=== PATIENT | male | born 1995 | race Caucasian/White ===

== ENCOUNTER 2020-03-15 18:40 | Inpatient (IN) ==
[2020-03-15] MEDS ORDERED: NS 0.9% 1000 ml BAG 1,000 ML IV ONE (18:56)
[2020-03-15] MEDS ORDERED: Charcoal ACTIVATED 25 GM/120 ML BTL PO ONE (19:04)
[2020-03-15 19:31] LABS: Urine Appearance Clear; Urine Bilirubin Negative (Negative); Urine Blood Negative (Negative); Urine Color Yellow; Urine Glucose Negative (Negative); Urine Ketones Negative (Negative); Urine Nitrite Negative (Negative); Urine Protein Negative (Negative); Urine Specific Gravity 1.008 (1.010-1.030); Urine Urobilinogen Negative (Negative)
[2020-03-15 19:49] LABS: ABS Eosinophils 0.3 10^3/ul (0-0.6); ABS Lymphocytes 2.2 10^3/ul (1.0-4.8); ABS Monocytes 0.4 10^3/ul (0-0.8); ABS Neutrophils 5.6 10^3/ul (1.5-7.7); Eosinophil % 3.3 %; Hematocrit 47 % (42-52); Hemoglobin 16.5 g/dL (14.0-18.0); Lymphocyte % 26.1 %; Mean Corpuscular HGB Conc 35 g/dL (31-36); Mean Corpuscular Hemoglobin 33 pg (27-31); Mean Corpuscular Volume 92 fL (80-94); Mean Platelet Volume 8.1 fL (7.4-10.4); Platelet Count 299 10^3/uL (150-450); Red Blood Count 5.09 10^6 /uL (4.18-5.48); Red Cell Distribution Width 12 % (10-15); White Blood Count 8.6 10^3/uL (3.5-10.8)
[2020-03-15 19:50] LABS: Urine Benzodiazepine Screen None Detected (None Detect); Urine Cannabinoids Screen Presumptive Positive (None Detect); Urine Opiates Screen None Detected (None Detect)
[2020-03-15 20:04] LABS: ALT 29 U/L (7-52); AST 21 U/L (13-39); Albumin 4.6 g/dL (3.2-5.2); Albumin/Globulin Ratio 1.5 (1-3); Alkaline Phosphatase 98 U/L (34-104); Anion Gap 7 mmol/L (2-11); BUN/Creatinine Ratio 12.2 (8-20); Blood Urea Nitrogen 11 mg/dL (6-24); CO2 Carbon Dioxide 29 mmol/L (22-32); Calcium 9.8 mg/dL (8.6-10.3); Chloride 102 mmol/L (101-111); EGFR African American 124.4 (>60); EGFR Non-African American 102.8 (>60); Glucose 102 mg/dL (70-100); Potassium 4.1 mmol/L (3.5-5.0); Sodium 138 mmol/L (135-145); Total Protein 7.6 g/dL (6.4-8.9)
[2020-03-15 20:22] LABS: Alcohol, S < 10 mg/dL (<10); Salicylate < 2.50 mg/dL (<30)
[2020-03-15 20:25] LABS: Acetaminophen < 15 mcg/mL
[2020-03-16] MEDS ORDERED: Al Hydrox/Mg Hydrox/Simet LIQ 30 ML UDC PO PRN (02:03)
[2020-03-16] MEDS: Vitamin THERAPEUTIC TAB PO SCH (09:35)
[2020-03-16] MEDS: DULoxetine DR 60 mg CAP PO SCH (09:35)
[2020-03-16] MEDS ORDERED: Testosterone Cypionate (NF) 200 MG/ML VIAL IM ONE (17:00)
[2020-03-17] MEDS: DULoxetine DR 60 mg CAP PO SCH (09:07)
[2020-03-17] MEDS: Vitamin THERAPEUTIC TAB PO SCH (09:07)
[2020-03-18] MEDS: Vitamin THERAPEUTIC TAB PO SCH (09:20)
[2020-03-18] MEDS: DULoxetine DR 60 mg CAP PO SCH (09:20)
[2020-03-19 08:03] LABS: HDL Cholesterol 43.1 mg/dL
[2020-03-19] MEDS: Vitamin THERAPEUTIC TAB PO SCH (10:14)
[2020-03-19] MEDS: DULoxetine DR 60 mg CAP PO SCH (10:14)
[2020-03-20] MEDS: DULoxetine DR 60 mg CAP PO SCH (09:42)
[2020-03-20] MEDS: Vitamin THERAPEUTIC TAB PO SCH (09:43)
[2020-03-20 11:38] VITALS: BP 156/71
== END 2020-03-20 16:00 | disposition home or self-care (01) | DRG 755 ==
LOC: ED 18:40 → BSU 03-16 01:37
PROVIDERS: ADMIT Psychiatry & Neurology Psychiatry; ATTEND Psychiatry & Neurology Psychiatry